=== PATIENT | male | born 1950 ===

== ENCOUNTER 2019-12-20 07:29 | Outpatient (CLI) | payer MEDICARE, BC ==
--- NOTE | 2019-12-20 10:19 | MRI ---
MRI LUMBAR SPINE WITHOUT CONTRAST: INDICATION: Low back pain. Right sciatic pain. FINDINGS: The lumbar vertebrae maintain normal height and alignment. Vertebral body signal is normal. The disk spaces are preserved, although degenerative disk changes are noted at L4-5 with mild loss of disk and degenerative disk signal change. Findings at each level are described. L1-2: Mild diffuse disk bulge flattens the thecal sac. There is mild facet hypertrophy. Very mild central canal stenosis. L2-3: Mild disk bulge slightly more pronounced to the right. There is mild to moderate facet hypert rophy. Mild central canal stenosis. Mild right foraminal encroachment due to asymmetric disk bulge to the right. This may contact the exiting right L2 nerve root as it exits the foramina. L3-4: Mild broad-based disk bulge. Moderately severe facet and ligamentous hypertrophy. These lima ges result in moderate central canal stenosis. Bilateral foraminal encroachment due to the facet hyp ertrophy. L4-5: Broad-based disk bulge/protrusion. Prominent facet and ligamentous hypertrophy. Moderate to severe central canal stenosis. Bilateral foraminal stenosis. L5-S1: Mild diffuse disk bulge. Facet and ligamentous hypertrophy. No significant central canal st enosis. Bilateral foraminal stenosis primarily due to facet hypertrophy. IMPRESSION: 1. Findings are most significant at L4-5 where there is moderate to severe central canal stenosis an d bilateral foraminal stenosis. 2. Bilateral foraminal stenosis also noted at L5-S1 as described above. POS: [facility]
== END 2019-12-20 07:30 | disposition home or self-care (01) ==
LOC: SCSMRI 07:29
PROVIDERS: ATTEND Specialist
DX: M51.16 Intervertebral disc disorders with radiculopathy, lumbar region (principal); M48.061 Spinal stenosis, lumbar region without neurogenic claudication; M48.07 Spinal stenosis, lumbosacral region
CPT/HCPCS: 72148